=== PATIENT | male | born 1975 | race Caucasian/White ===

== ENCOUNTER 2019-06-03 12:58 | Emergency (ER) | payer OTHER ==
[~2019-06-03] VITALS: Ht 157.5 cm; Wt 113.4 kg
--- NOTE | 2019-06-03 13:13 | NUR ---
PT IS A/OX4, PRESENTS TO THE ER C/O FACIAL LAC. 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 HE WAS WORKING WHEN A METAL SHARD FELL AND SCRATCHED THE L BRIDGE OF HIS NOSE. WOUND IRRIGATED W/ NS. UPON ASSESSMENT, 1 INCH LONG SCRATCH NOTED. PT DENIES IMPACT TO THE L EYE, NO BLURRED VISION, NO HEAD INJURY/LOC. PT IS TACHYCARDIC AND HYPERTENSIVE W/ A HX OF HYPERTENSION. ER MD AWARE. PT DENEIS PAIN AT THIS TIME. PT DENIES C/P, SOB, N/V/D, DIZZINESS, HEADACHE.
--- NOTE | 2019-06-03 13:27 | NUR ---
CARLA CALABRESE AT BEDSIDE FOR MSE.
--- NOTE | 2019-06-03 13:55 | NUR ---
Patient discharged to home in stable conditon. Written and verbal after care instructions given. Patient verbalizes understanding of instructions. ALL BELONGINGS W/ PT. PT SELF-AMBULATED W/O DIFFICULTY.
[2019-06-03 13:58] VITALS: BP 176/92
== END 2019-06-03 13:59 | disposition home or self-care (01) ==
LOC: ER 12:59
DX: S01.21XA Laceration without foreign body of nose, initial encounter (principal); E78.5 Hyperlipidemia, unspecified; E11.9 Type 2 diabetes mellitus without complications; W20.8XXA Other cause of strike by thrown, projected or falling object, initial encounter; Y93.89 Activity, other specified; Y92.89 Other specified places as the place of occurrence of the external cause; Y99.8 Other external cause status
CPT/HCPCS: A4217; A4663